=== PATIENT | female | born 1990 | race African-American/Black ===

== ENCOUNTER 2018-04-07 12:33 | Emergency (ER) | payer SELFPAY ==
[~2018-04-07] VITALS: Ht 170.2 cm; Wt 126.0 kg
[~2018-04-07 12:33] MED LIST: ADVI200C9 PO
[2018-04-07 13:00] VITALS: BP 170/79; PULSE 99; RESP 18; TEMP 98.4; O2SAT 100
[2018-04-07] MEDS ORDERED: IBUPROFEN 800 MG TAB PO ONE (13:30)
--- NOTE | 2018-04-07 13:36 | RADRPT ---
EXAM DATE: 04/07/2018 1:26 PM EDT AGE/SEX: 27 years / Female INDICATIONS: Fall. Right lateral ankle pain. CLINICAL DATA: This is the patient's initial encounter. Patient reports that signs and symptoms have been present for 2 days and indicates a pain score of 6/10. MEDICAL/SURGICAL HISTORY: None. None. COMPARISON: No prior [place] exams available for comparison. FINDINGS: Bony structures are intact and in normal alignment. Soft tissue swelling. Ankle mortise intact. No fr acture seen. No radiopaque foreign bodies seen. CONCLUSION: Soft tissue swelling without fracture Electronically signed by: Pierre Gomez MD 04/07/2018 1:35 PM EDT
--- NOTE | 2018-04-07 13:36 | PD ---
HPI Chief Complaint: Injury Time Seen by Provider: 13:29 Travel History International Travel<30 days: Yes Contact w/Intl Traveler<30days: [place] Country Traveled to: [place] Traveled to known affect area: No History of Present Illness HPI 27-year-old -Stateless female presents emergency department with pain and swelling to the right foot and ankle status post stepping wrong in the ditch walking to her car. She states it did not hurt right away but since yesterday has gotten more painful and more difficult to bear weight. No history of gout in the past. Pain is an achy pain, worse with palpation and movement. She rates it as an 8 out of 10. She has no other injury. She has no known drug allergies. [facility] Past Medical History Medical History: Denies Significant Hx Blood Disorders: Yes (VAGINAL) Cancer: No Cardiovascular Problems: No Endocrine: No Genitourinary: No Immune Disorder: No Musculoskeletal: No Neurologic: No Psychiatric: No Reproductive: Yes (VAGINAL BLEEDING) Respiratory: No Tetanus Vaccination: Unknown Influenza Vaccination: No ?: Unknown LMP: March 04, 2018 Past Surgical History Surgical History: No Previous Surgery Social History Alcohol Use: No Tobacco Use: No Substance Use: No Allergies-Medications (Allergen,Severity, Reaction): Coded Allergies: No Known Allergies (Verified Adverse Reaction, Unknown, 04/07/18) Reported Meds & Prescriptions Reported Meds & Active Scripts Active No Active Prescriptions or Reported Medications Review of Systems Except as stated in HPI: all other systems reviewed are Neg General / Constitutional: No: Fever Eyes: No: Visual changes HENT: No: Headaches Cardiovascular: No: Chest Pain or Discomfort Respiratory: No: Shortness of Breath Gastrointestinal: No: Abdominal Pain Genitourinary: No: Dysuria Musculoskeletal: Positive: Arthralgias, Limited ROM, Pain Skin: No Rash Neurologic: No: Weakness Psychiatric: No: Depression Endocrine: No: Polydipsia Hematologic/Lymphatic: No: Easy Bruising Physical Exam Narrative GENERAL: Patient appears in mild distress. SKIN: Warm and dry. Normal color. Normal turgor. No signs of open wound. HEAD: Atraumatic. Normocephalic. EYES: Pupils equal and round. No scleral icterus. No injection or drainage. ENT: No nasal bleeding or discharge. Mucous membranes pink and moist. Pharynx is clear. Airway is patent NECK: Trachea midline. Supple. CARDIOVASCULAR: Regular rate and rhythm. RESPIRATORY: No accessory muscle use. Clear to auscultation. Breath sounds equal bilaterally. MUSCULOSKELETAL: Extremities without clubbing, cyanosis, or edema. No obvious deformities. Patient has tenderness and swelling along the dorsal lateral foot as well as anterior ankle. Range of motion is intact limited by pain. Neurovascular exam is normal. NEUROLOGICAL: Awake and alert. No obvious cranial nerve deficits. Motor grossly within normal limits. Five out of 5 muscle strength in the arms and legs. Normal speech. PSYCHIATRIC: Appropriate mood and affect; insight and judgment normal. Data Data Last Documented VS Vital Signs Date Time Temp Pulse Resp B/P (MAP) Pulse Ox O2 Delivery O2 Flow Rate FiO2 04/07/18 13:00 98.4 99 18 170/79 (109) 100 Orders Orders Ankle, Complete ([id number]) (04/07/18 13:02) Ice/Cold Pack (04/07/18 13:02) Ed Urine Pregnancytest Poc (04/07/18 13:11) MDM Medical Decision Making Medical Screen Exam Complete: Yes Emergency Medical Condition: Yes Differential Diagnosis Foot sprain. Ankle sprain. Possible fracture. Narrative Course Ankle x-rays ordered. X-ray show no acute process per radiologist Patient is placed in [place] bandage for comfort. Patient is given ibuprofen 800 mg p.o. 1 now. Patient be continued on ibuprofen 800 mg 3 times daily as needed pain #30 Patient should keep the foot elevated and limit ambulation until improved. Patient is given crutches to help with ambulation until improved. Work note is given. Diagnosis Primary Impression: Sprain of right foot Qualified Codes: S93.601A - Unspecified sprain of right foot, initial encounter Additional Impression: Right ankle sprain Qualified Codes: S93.401A - Sprain of unspecified ligament of right ankle, initial encounter Patient Instructions: Ankle Exercises (GEN), Foot Sprain (ED), General Instructions Departure Forms: Work Release Enter return to work date: Apr 10, 2018 Additional Instructions: X-ray show no acute process per radiologist Patient is placed in [place] bandage for comfort. Patient is given ibuprofen 800 mg p.o. 1 now. Patient be continued on ibuprofen 800 mg 3 times daily as needed pain #30 Patient should keep the foot elevated and limit ambulation until improved. Patient is given crutches to help with ambulation until improved. Work note is given. Med/Other Pt SpecificInfo: Prescription(s) given Scripts No Active Prescriptions or Reported Meds Disposition: 01 DISCHARGE HOME Condition: Stable Richard Liu April 07, 2018 13:36
[2018-04-07] MEDS ORDERED: IBUP1TAB7 PO (13:38)
== END 2018-04-07 13:55 | disposition home or self-care (01) ==
LOC: NEPK 12:33
DX: S93.601A Unspecified sprain of right foot, initial encounter (principal); S93.401A Sprain of unspecified ligament of right ankle, initial encounter; X50.9XXA Other and unspecified overexertion or strenuous movements or postures, initial encounter; Y93.01 Activity, walking, marching and hiking
CPT/HCPCS: 73610; 84703; 99283; E0113